=== PATIENT | male | born 1955 | race Caucasian/White ===

== ENCOUNTER 2018-05-02 06:44 | Emergency (ER) | payer OTHER ==
[~2018-05-02] VITALS: Ht 180.3 cm; Wt 93.2 kg
[~2018-05-02 06:44] MED LIST: PERCOCET PO; no home medications
[2018-05-02] MEDS ORDERED: MULTCAP PO (06:51)
[2018-05-02] MEDS ORDERED: NS 1,000 ML IV ONE ×2 (07:30→09:15)
[2018-05-02] MEDS ORDERED: ONDANSETRON 4MG/2ML VIAL (J2405) IV ONE (07:30)
[2018-05-02] MEDS ORDERED: MORPHINE 4 MG/ML 1ML VIAL/SYRINGE (J2270) IV ONE (07:30)
[2018-05-02] MEDS ORDERED: GASTROGRAFIN SOLUTION 30ML PO SCH (08:00)
[2018-05-02] MEDS: GASTROGRAFIN SOLUTION 30ML PO SCH (08:04)
[2018-05-02 08:14] LABS: BASO % 0.3 % (0.0-1.0); EOS % 0.1 % (0.0-3.0); HEMATOCRIT 50.7 % (42.0-52.0); HEMOGLOBIN 17.1 g/dl (13.5-17.5); LYMPH # 1.5 10^3/uL (1.5-4.5); LYMPH % 10.3 % (24.0-44.0); MEAN CORPUSCULAR HEMOGLOBIN 29.6 pg (27.0-33.0); MEAN CORPUSCULAR HGB CONC 33.7 g/dl (32.0-36.5); MEAN CORPUSCULAR VOLUME 87.9 fl (80.0-96.0); MONO # 0.5 10^3/uL (0.0-0.8); MONO % 3.2 % (0.0-5.0); NEUTROPHILS # 12.1 10^3/uL (1.8-7.7); NEUTROPHILS % 85.5 % (36.0-66.0); PLATELET COUNT, AUTOMATED 241 10^3/uL (150-450); RED BLOOD COUNT 5.77 10^6/uL (4.30-6.10); WHITE BLOOD COUNT 14.2 10^3/uL (4.0-10.0)
[2018-05-02 08:24] LABS: INR 0.95; PROTHROMBIN TIME 12.8 SECONDS (12.1-14.4)
[2018-05-02 08:25] LABS: PARTIAL THROMBOPLASTIN TIME 28.3 SECONDS (25.4-37.6)
[2018-05-02 08:39] LABS: ALBUMIN 3.6 GM/DL (3.2-5.2); ALT/SGPT 44 U/L (12-78); AMYLASE 52 U/L (25-115); BILIRUBIN,DIRECT 0.2 MG/DL (0.0-0.2); BILIRUBIN,TOTAL 0.7 MG/DL (0.2-1.0); BLOOD UREA NITROGEN 10 MG/DL (7-18); CALCIUM LEVEL 8.9 MG/DL (8.8-10.2); CARBON DIOXIDE LEVEL 23 MEQ/L (21-32); CHLORIDE LEVEL 105 MEQ/L (98-107); CREATININE FOR GFR 1.03 MG/DL (0.70-1.30); GLOMERULAR FILTRATION RATE > 60.0 (>49); GLUCOSE, FASTING 145 MG/DL (70-100); LIPASE 95 U/L (73-393); POTASSIUM SERUM 4.6 MEQ/L (3.5-5.1); SODIUM LEVEL 136 MEQ/L (136-145); TOTAL PROTEIN 7.8 GM/DL (6.4-8.2)
[2018-05-02] MEDS ORDERED: HYDROMORPHONE HCL 0.5 MG/ 0.5 ML SYRINGE (J1170 PER 1) IV ONE ×2 (08:45→11:00)
[2018-05-02] MEDS ORDERED: ISOVUE-370 76% 100ML VIAL (Q9967) As Ordered ONE (09:24)
--- NOTE | 2018-05-02 10:34 | REP ---
CT ABDOMEN AND PELVIS WITH CONTRAST: HISTORY: Periumbilical pain. CONTRAST: Isovue-370, 100 mL. Two small cysts measuring 6 mm and 7 mm are present in the right kidney. Calcification is present in the right kidney, consistent with nephrolithiasis. The liver, gallbladder, pancreas, spleen, adrenal glands, and left kidney are normal in appearance. There is no mass, adenopathy, or free fluid. A 10.4 cm ventral abdominal hernia containing nondilated loops of intestine is present. There is no mass, adenopathy, or free fluid. The visualized lungs are clear. The prostate gland and urinary bladder are normal in appearance. Degenerative change is present in the spine. IMPRESSION: 1. Small right renal cysts. 2. Right nephrolithiasis. 3. There is a 10.4 cm ventral abdominal hernia containing nondilated loops of intestine. Electronically Signed by True Holley MD 05/02/2018 11:21 A
[2018-05-02] MEDS ORDERED: ZOFR4TAB14 PO (12:08)
[2018-05-02 12:15] VITALS: BP 200/90
[2018-05-03] MEDS ORDERED: OCUVTAB4 PO (12:05)
[2018-05-03] MEDS ORDERED: ROCURONIUM BROMIDE 50 MG/5 ML VIAL As Ordered ONE (12:40)
[2018-05-03] MEDS ORDERED: LIDOCAINE 2% INJ 100 MG/5 ML SDV (FOR ANES.) As Ordered ONE (12:40)
[2018-05-03] MEDS ORDERED: MIDAZOLAM INJ 2 MG/2 ML VIAL (J2250) As Ordered ONE (12:40)
[2018-05-03] MEDS ORDERED: fentaNYL 250 MCG/5 ML INJECTION (J3010) As Ordered ONE (12:40)
[2018-05-03] MEDS ORDERED: PROPOFOL 200 MG/20 ML VIAL As Ordered ONE (12:40)
[2018-05-03] MEDS ORDERED: ONDANSETRON 4MG/2ML VIAL (J2405) As Ordered ONE (12:41)
[2018-05-03] MEDS ORDERED: dexameTHASONE 4 MG/ML 1ML VIAL (J1100) As Ordered ONE (12:41)
[2018-05-03] MEDS ORDERED: KETOROLAC 60 MG/2 ML VIAL (J1885) As Ordered ONE (12:41)
--- NOTE | 2018-05-03 13:36 | ECGEPIP ---
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
[2018-05-03] MEDS ORDERED: NORC1TAB4 PO (14:32)
--- NOTE | 2018-05-04 08:57 | ED PDOC ---
Post-Departure Follow-Up dr corral and mark moore faxed formal report of ct abd/p for fu Julisa Coreas MD May 04, 2018 08:57
== END 2018-05-02 12:23 | disposition home or self-care (01) ==
LOC: M ED 06:44
DX: K43.9 Ventral hernia without obstruction or gangrene (principal); N28.1 Cyst of kidney, acquired; I45.10 Unspecified right bundle-branch block; F17.210 Nicotine dependence, cigarettes, uncomplicated
CPT/HCPCS: 36415; 74177; 80048; 80076; 81001; 82150; 83605; 83690; 85025; 85610; 85730; 93005; 96361; 96374; 96375; 96376; 99284; J1170; J2270; J2405; Q9963; Q9967

== ENCOUNTER 2018-05-03 11:34 | Day surgery (SDC) | payer OTHER ==
[~2018-05-03] VITALS: Ht 180.3 cm; Wt 96.2 kg
[~2018-05-03 11:34] MED LIST changes: +MULTCAP PO; +ZOFR4TAB14 PO
[2018-05-03] MEDS ORDERED: LR 1,000 ML IV ONE (12:00)
[2018-05-03] MEDS ORDERED: OCUVTAB4 PO (12:05)
[2018-05-03] MEDS ORDERED: BUPIVACAINE/EPIN 0.25% 30 ML VIAL As Ordered ONE (12:40)
[2018-05-03] MEDS ORDERED: fentaNYL 250 MCG/5 ML INJECTION (J3010) ONE (12:41)
[2018-05-03] MEDS ORDERED: KETOROLAC 60 MG/2 ML VIAL (J1885) ONE (12:41)
[2018-05-03] MEDS ORDERED: LIDOCAINE 2% INJ 100 MG/5 ML SDV (FOR ANES.) ONE (12:41)
[2018-05-03] MEDS ORDERED: PROPOFOL 200 MG/20 ML VIAL ONE (12:41)
[2018-05-03] MEDS ORDERED: MIDAZOLAM INJ 2 MG/2 ML VIAL (J2250) ONE (12:41)
[2018-05-03] MEDS ORDERED: ROCURONIUM BROMIDE 50 MG/5 ML VIAL ONE (12:41)
[2018-05-03] MEDS ORDERED: ONDANSETRON 4MG/2ML VIAL (J2405) ONE (12:42)
[2018-05-03] MEDS ORDERED: dexameTHASONE 20 MG/5 ML VIAL (J1100) ONE (12:42)
[2018-05-03] MEDS ORDERED: ESMOLOL INJ 100MG/10ML VIAL As Ordered ONE (13:13)
[2018-05-03] MEDS ORDERED: SUGAMMADEX SODIUM 500 MG/5 ML VIAL (BRIDION) As Ordered ONE (14:11)
[2018-05-03] MEDS ORDERED: NORC1TAB4 PO (14:32)
[2018-05-03] MEDS ORDERED: ONDANSETRON 4MG/2ML VIAL (J2405) IV PRN (14:45)
[2018-05-03] MEDS ORDERED: LR 1,000 ML IV SCH (14:45)
[2018-05-03] MEDS ORDERED: fentaNYL 100 MCG/2 ML INJECTION (J3010) IV PRN (14:45)
[2018-05-03] MEDS ORDERED: PERCOCET 5MG/325MG TAB PO PRN (14:45)
[2018-05-03] MEDS ORDERED: NORCO, ANEXSIA 5/325MG TABLET (HYDROcodone/ACETAMINOPHEN) PO PRN (14:45)
--- NOTE | 2018-05-03 14:45 | RO ---
DATE OF PROCEDURE: 05/03/2018 PREOPERATIVE DIAGNOSIS: Recurrent incarcerated incisional hernia. POSTOPERATIVE DIAGNOSIS: Recurrent incarcerated incisional hernia. PROCEDURE PERFORMED: Laparoscopic repair of recurrent incarcerated incisional hernia with mesh with laparoscopic lysis of adhesions. SURGEON: Dr. Spencer Conklin. STATION SUPERVISOR: Aurelia Najera PA-C ANESTHESIA: General. ESTIMATED BLOOD LOSS: 5 COMPLICATIONS: None. INDICATIONS FOR PROCEDURE: Patient 62-year-old male who has had persistent abdominal pains recently. He has had an incarcerated ventral incisional hernia that has been causing a lot of pain as well as nausea and vomiting. Recommendation was to proceed with repair. Risks, benefits of the procedure not limited but including bleeding, infection, hernia formation, damage to surrounding structures, need for further surgery and hernia recurrence were discussed in detail with the patient and informed was obtained, procedure was planned. DESCRIPTION OF PROCEDURE: The patient brought back to operating room 7 and after sufficient sedation the abdomen was sterilely prepped and draped. Next time-out was done to confirm proper patient brought procedure. Following that a 5 mm incision made in left upper quadrant, Veress needle was inserted and the was insufflated to 2 mmHg. A 5 mm OptiView port was used to gain access to the abdomen. Once the abdomen was entered another 5 meters port was placed in left lower quadrant. There was a large ventral hernia with a loop of small bowel and omentum stuck up inside of it. The omentum was carefully taken down and at first revealing a loop of small bowel that was obstructed with a band of tissue across the previous hernia defect. I placed another 5 mm port in the right lower quadrant and was able to hold the small bowel up out of the way and cut through the band of tissue releasing the internal hernia. Once this was completed, the bowel appeared to be all viable. No signs of any injury. A 15 cm round Parietex composite mesh was then taken. All Vicryl sutures were placed in all four sides. It was placed inside the abdomen. Transvaginal sutures brought to the abdominal wall using Florentin-Marrero needle. Two rows of secure strap tacks then placed around perimeter of the mesh holding it in place. At the completion of procedure, there was no signs of any bleeding or hematomas. The mesh was nice and tight against the abdominal wall. The bowel still appeared to be viable and intact and was actively peristalsing. The abdomen desufflated. Skin incisions closed with #4-0 Vicryl subcuticular sutures. The abdomen was cleaned and dried, Steri-Strips, 4x4 and tape were applied at the end of the procedure.
[2018-05-03 17:00] VITALS: BP 183/96
== END 2018-05-03 17:26 | disposition home or self-care (01) ==
LOC: M SDC 11:34
PROVIDERS: ATTEND Surgery
DX: K43.0 Incisional hernia with obstruction, without gangrene (principal); F17.210 Nicotine dependence, cigarettes, uncomplicated
CPT/HCPCS: 49657; C1781; J0690; J1100; J1885; J2250; J2405; J3010

== ENCOUNTER 2018-11-04 09:38 | Day surgery (SDC) | payer MEDICARE, OTHER ==
[~2018-11-04] VITALS: Ht 180.3 cm; Wt 95.7 kg
[~2018-11-04 09:38] MED LIST changes: +BALANCED SALT IRRIGATION SOLUTION 500ML BAG (FOR OR EYE MACHINE) As Ordered ONE; +CEFUROXIME 1MG/0.1ML INTRACAMERAL INJ As Ordered ONE; +DUOVISC (0.50ML VISCOAT/0.55ML PROVISC) OPHTH KIT As Ordered ONE; +LIDOCAINE 0.75%/EPINEPHRINE 0.025% IN BSS 1ML SYR INTRACAMERAL (OR ONLY) As Ordered ONE; +MIDAZOLAM INJ 2 MG/2 ML VIAL (J2250) As Ordered ONE; +NORC1TAB7 PO; +OCUVTAB4 PO; +OFLOXACIN 0.3 % (OCUFLOX) OPTH SOL 5ML OD ONE; +PHENYLEPHRINE 2.5% OPHTH SOL 2ML OD ONE; +POVIDONE-IODINE 5% OPHTH PREP SOL 30ML As Ordered ONE; +PROPARACAINE 0.5% OPHTH SOL 15ML OD ONE; +TROPICAMIDE 1% OPHTH SOLN 2ML OD ONE; +fentaNYL 100 MCG/2 ML INJECTION (J3010) As Ordered ONE
[2018-11-04 12:30] VITALS: BP 161/85
--- NOTE | 2018-11-05 20:42 | RO ---
DATE OF PROCEDURE: 11/04/2018 PREOPERATIVE DIAGNOSIS: 1. Visually significant nuclear sclerotic cataract right eye. POSTOPERATIVE DIAGNOSIS: 1. Visually significant nuclear sclerotic cataract right eye. PROCEDURE: 1. Cataract extraction with use of phacoemulsification and placement of intraocular lens, [id number], 24.5 D, right eye. SURGEON: Rajeev Maldonado DO LIFE ENRICHMENT ASSISTANT: None. ANESTHESIA: Local with monitored anesthesia care (MAC). COMPLICATIONS: None. POSTOPERATIVE CONDITION: Stable. INDICATIONS FOR SURGERY: 1. Blurred vision affecting patients activities of daily living. DESCRIPTION OF PROCEDURE: The patient was seen in the preoperative area and properly identified. The correct operative eye was identified and marked. The patient received topical anesthetic, antibiotics, and topical dilating drops. The patient was then transferred to the operating room. The correct side was re-identified, and a time-out was performed. The eye was prepped and draped in a sterile fashion. The eyelids were isolated with Tegaderm tape, and the lids were held open with an adjustable speculum. A 1.0 mm paracentesis incision was made. Intraocular preservative-free Shugarcaine was then injected into the anterior chamber. Viscoelastic was then injected into the anterior chamber through the paracentesis. Using a 2.4 mm sharp-tipped keratome, the anterior chamber was entered via a temporal clear cornea incision. A continuous curvilinear capsulorrhexis was created with Utrata forceps. Hydrodissection was performed with balanced salt solution (BSS) on a blunt cannula until the nucleus was able to rotate freely. The crystalline lens was phacoemulsified and aspirated. Irrigation/aspiration was used to remove the cortical material. Cohesive viscoelastic was placed into the capsular bag to deepen it. The implant was placed into the capsular bag and allowed to unfold. Placement was confirmed by visualizing the anterior capsulorrhexis. Irrigation/aspiration was used to remove the viscoelastic. The clear corneal incision was hydrated with BSS on a blunt cannula. The lens was well positioned. The incisions were then tested for leaks and found to be negative. The eye was then palpated for appropriate pressure and adjusted accordingly with BSS. The eyelid speculum was then carefully removed. A shield was placed over the eye. The patient tolerated the procedure well and was discharged to the recovery unit in a stable condition.
== END 2018-11-04 12:33 | disposition home or self-care (01) ==
LOC: M SDC 09:38
PROVIDERS: ATTEND Ophthalmology
DX: H25.12 Age-related nuclear cataract, left eye (principal); H35.30 Unspecified macular degeneration; Z72.0 Tobacco use
CPT/HCPCS: 66984; J2250; J3010; V2632

== ENCOUNTER 2019-05-19 18:36 | Observation (INO) | payer MEDICARE, OTHER ==
[~2019-05-19] VITALS: Ht 177.8 cm; Wt 98.0 kg
[~2019-05-19 18:36] MED LIST changes: -BALANCED SALT IRRIGATION SOLUTION 500ML BAG (FOR OR EYE MACHINE) As Ordered ONE; -CEFUROXIME 1MG/0.1ML INTRACAMERAL INJ As Ordered ONE; -DUOVISC (0.50ML VISCOAT/0.55ML PROVISC) OPHTH KIT As Ordered ONE; -LIDOCAINE 0.75%/EPINEPHRINE 0.025% IN BSS 1ML SYR INTRACAMERAL (OR ONLY) As Ordered ONE; -MIDAZOLAM INJ 2 MG/2 ML VIAL (J2250) As Ordered ONE; -OFLOXACIN 0.3 % (OCUFLOX) OPTH SOL 5ML OD ONE; -PHENYLEPHRINE 2.5% OPHTH SOL 2ML OD ONE; -POVIDONE-IODINE 5% OPHTH PREP SOL 30ML As Ordered ONE; -PROPARACAINE 0.5% OPHTH SOL 15ML OD ONE; -TROPICAMIDE 1% OPHTH SOLN 2ML OD ONE; -fentaNYL 100 MCG/2 ML INJECTION (J3010) As Ordered ONE
[2019-05-19] MEDS ORDERED: ACETAMINOPHEN TAB 650MG DOSE (2X325MG) PO ONE (19:00)
[2019-05-19 19:24] LABS: BASO % 0.4 % (0.0-1.0); EOS % 0.2 % (0.0-3.0); HEMOGLOBIN 16.4 g/dl (13.5-17.5); LYMPH # 0.7 10^3/uL (1.5-5.0); LYMPH % 13.8 % (24.0-44.0); MEAN CORPUSCULAR HEMOGLOBIN 29.2 pg (27.0-33.0); MEAN CORPUSCULAR HGB CONC 32.8 g/dl (32.0-36.5); MEAN CORPUSCULAR VOLUME 89.1 fl (80.0-96.0); MONO # 0.5 10^3/uL (0.0-0.8); MONO % 9.9 % (0.0-5.0); NEUTROPHILS % 75.5 % (36.0-66.0); PLATELET COUNT, AUTOMATED 146 10^3/uL (150-450); RED BLOOD COUNT 5.61 10^6/uL (4.30-6.10); WHITE BLOOD COUNT 5.4 10^3/uL (4.0-10.0)
[2019-05-19] MEDS ORDERED: NS 1,000 ML IV ONE (19:30)
[2019-05-19] MEDS ORDERED: IPRATROPIUM 0.5MG/ALBUTEROL 2.5MG INH SOL UD 3ML (DUONEB)(J7620) NEB ONE (19:45)
[2019-05-19 19:51] LABS: BLOOD UREA NITROGEN 17 MG/DL (7-18); CARBON DIOXIDE LEVEL 25 MEQ/L (21-32); CHLORIDE LEVEL 106 MEQ/L (98-107); GLOMERULAR FILTRATION RATE > 60.0 (>49); GLUCOSE, FASTING 128 MG/DL (70-100); POTASSIUM SERUM 4.2 MEQ/L (3.5-5.1); SODIUM LEVEL 139 MEQ/L (136-145)
--- NOTE | 2019-05-19 19:51 | REP ---
Chest x-ray: Two views. History: Dyspnea and cough. Comparison study: November 14, 2013. Findings: Oxygen delivery tubing and EKG monitoring electrodes overlie the chest. The lungs are somewhat hyperinflated but clear. Pleural angles are sharp. Heart size is normal. There are mild degenerative changes in the thoracic spine. Impression: Mild hyperinflation. Otherwise no acute disease. Electronically Signed by Yaakov Rosales MD 05/19/2019 07:43 P
[2019-05-19 19:59] LABS: INFLUENZA A AMPLIFICATION POSITIVE (NEGATIVE); INFLUENZA B AMPLIFICATION NEGATIVE (NEGATIVE)
[2019-05-19] MEDS ORDERED: OSELTAMIVIR PHOSPHATE 75 MG CAP (TAMIFLU) PO ONE (20:45)
[2019-05-19] MEDS ORDERED: ACETAMINOPHEN TAB 650MG DOSE (2X325MG) PO PRN (21:15)
[2019-05-19] MEDS ORDERED: IBUP-1764 PO (21:24)
[2019-05-19] MEDS ORDERED: PRES10CA2 PO (21:24)
[2019-05-19] MEDS ORDERED: VITMTA PO (21:24)
[2019-05-19] MEDS ORDERED: LEVALBUTEROL 1.25 MG/0.5 ML CONCENTRATE NEB NEB PRN (21:45)
--- NOTE | 2019-05-19 22:35 | HPEPDOC ---
General Date of Admission May 19, 2019 at 18:37 Date of Service: May 19, 2019 Attending Physician: YESENIA SANCHEZ MD Chief Complaint The patient is a 63-year-old male admitted with a reason for visit of Hypoxia, Influenza A. Source: Patient, Family Exam Limitations: No limitations Timing/Duration: Day(s) Severity: Severe Associated Symptoms: Fever, Chills, Shortness of breath History of Present Illness 63 yo man without any contact with healthcare providers in many years reporting good general health who presents with 3 days of congestion, rhinorrhea, dry cough, fever and an episode of feeling faint while taking a shower with profound shortness of breath that precipitated him to present to the ED. In the ED, he was found to be hypertensive to 161/91, hypoxemic to 80s on room air and placed on 3L nasal canula, tachycardic to 124 with an initial respiratory rate of 31 and a fever to 103.4. Initial work up revealed flu A infection, with otherwise WBC 5.4, hgb 16.4, hct 50, platelets 146, na 139, K 4.2, Cr 0.9, lactate 1.5, CXR with hyperinflation but no opacities or congestion and VBG showed 7.44/31.4/92. While in the ED, he was given 1L NS, tylenol 650mg and he defervesced, tamiflu and duoneb x 1. By the time I assessed him, he felt "light years" better and was speaking in full sentences. he is now being admitted to medicine for supportive treatment for flu A. Home Medications Scheduled Multivitamins (Thera M Plus Tablet) 1 Each Tablet, 1 TAB PO QPM, (Reported) AFTER DINNER Vit C/E/Zn/Coppr/Lutein/Zeaxan (Preservision Areds 2 Softgel) 1 Each Capsule, 2 CAP PO QPM, (Reported) AFTER DINNER Scheduled PRN Ibuprofen (Ibuprofen) 200 Mg Tablet, 200 MG PO Q6H PRN for PAIN, (Reported) Allergies Coded Allergies: No Known Allergies (Unverified , 10/25/18) Past Medical History Medical History Smoker with hyperinflation on CXR Has not seen a physician in over 10 years Surgical History Tonsillectomy Abdominal hernia repair Bilateral cataract surgery Family History Significant Family History: No pertinent family hx Social History * Smoker: current smoker Alcohol: occationally Drugs: denies Recent Travel/Sick Contacts: Denies: Recent travel, Recent sick contacts Psychosocial History: No pertinent psych hx , lives with his and dog in [place], [place]. A-FIB/CHADSVASC A-FIB History Current/History of A-Fib/PAF?: No Current PO Anticoag Therapy: No Age/Risk Factor Scoring CHADSVASC: CHADSVASC Response (Comments) Value Age Risk Factor Age 65-74 years old 1 Gender Risk Factor Male 0 Hx of CHF No 0 Hx of HTN No 0 Hx of Stroke/TIA/or VTE No 0 Hx of Diabetes No 0 Hx of Vascular Disease No 0 Total 1 Treatment Treatment ordered: NONE Reason Anticoagulant not given: Not indicated/[id number] Review of Systems Constitutional: Reports: Chills, Fever, Malaise; Denies: Weight Loss Eyes: Denies: Pain, Vision change ENT: Reports: Sinus Congestion, Post Nasal Drip; Denies: Head Aches, Ear Pain, Dysphagia Skin: Denies: Rash, Lesions, Breakdown Pulmonary: Reports: Dyspnea, Cough; Denies: Pleuritic Chest Pain Cardiovascular: Denies: Chest Pain, Palpitations, Orthopnea, Paroxysmal Noc. Dyspnea, Edema, Lt Headedness Gastrointestinal: Denies: Nausea, Vomiting, Abdominal Pain, Diarrhea Genitourinary: Denies: Dysuria, Frequency, Incontinence, Retention Hematologic: Denies: Bruising, Bleeding Excessively Endocrine: Denies: Polydipsia, Polyphagia, Polyuria, Heat Intolerance, Cold Intolerance, Other Endocrine Sx Musculoskeletal: Denies: Neck Pain, Back Pain, Joint Pain, Muscle Pain, Spasms Neurological: Denies: Weakness, Numbness, Change in speech, Confusion Psych: Reports: Mood Normal; Denies: Depression, Memory Issues Physical Examination General Exam: Positive: Alert, No Acute Distress, Other (obese) Eye Exam: Positive: PERRLA, Conjunctiva & lids normal, EOMI; Negative: Sclera icteric ENT Exam: Positive: Atraumatic, Mucous membr. moist/pink, Pharynx Normal, Tongue Midline, Nares Patent; Negative: Pharyngeal Edema Neck Exam: Positive: Supple; Negative: JVD, thyromegaly Chest Exam: Positive: Rhonchi, Wheezing, Other (sounds tight and has end expiratory wheezing); Negative: Rales Heart Exam: Positive: Rate Normal, Regular Rhythm, Normal S1, Normal S2; Negative: Murmurs, Rubs Telemetry: Positive: Tachycardia Abdomen Exam: Positive: Normal bowel sounds, Soft; Negative: Tenderness, Hepatospenomegaly Extremity Exam: Positive: Normal pulses; Negative: Clubbing, Cyanosis, Edema Skin Exam: Positive: Nl turgor and temperature; Negative: Breakdown, Lesion Neuro Exam: Positive: Normal Gait, Normal Speech, Cranial Nerves 3-12 NL, Reflexes 2+ Psych Exam: Positive: Mental status NL, Mood NL, Oriented x 3 Vital Signs Vital Signs Date Time Temp Pulse Resp B/P (MAP) Pulse Ox O2 Delivery O2 Flow Rate FiO2 05/19/19 21:15 102 16 147/65 (92) 93 Nasal Cannula 3.0 05/19/19 21:08 100.8 Laboratory Data Labs 24H Laboratory Tests 2 05/19/19 19:09: Immature Granulocyte % (Auto) 0.2, Neutrophils (%) (Auto) 75.5H, Lymphocytes (%) (Auto) 13.8L, Monocytes (%) (Auto) 9.9H, Eosinophils (%) (Auto) 0.2, Basophils (%) (Auto) 0.4, Neutrophils # (Auto) 4.0, Lymphocytes # (Auto) 0.7L, Monocytes # (Auto) 0.5, Eosinophils # (Auto) 0.0, Basophils # (Auto) 0.0, Nucleated Red Blood Cells % (auto) 0.0, Anion Gap 8, Glomerular Filtration Rate > 60.0, Lactic Acid Level 1.5, Calcium Level 8.0L, Influenza Type A (RT-PCR) POSITIVEH, Influenza Type B (RT-PCR) NEGATIVE 05/19/19 20:06: POC pH (Misc Panel) 7.444, POC Base Excess (Misc Panel) -3.0L, POC Saturated Percent O2 (Misc) 92L, POC pO2 (Misc Panel) 59.0L, POC pCO2 (Misc Panel) 31.4L, POC HCO3 (Misc Panel) 21.5L, POC Total CO2 (Misc Panel) 22.0L CBC/BMP Laboratory Tests 05/19/19 19:09 Microbiology Microbiology 05/19/19 Blood Culture, Received Pending 05/19/19 Blood Culture, Received Pending Assessment/Plan 63 yo man without any contact with healthcare providers in many years reporting good general health who presents with 3 days of congestion, rhinorrhea, dry cough, fever and SOB and found to have flu A. Plan: Flu A: c/b hypoxemic respiratory failure -tamiflu started in the ED, will give for 5d given that he required admission -Hypoxemia 2/2 flu with bronchospasm and wheezing on exam --> ipratropium/xopenex nebs Q6H scheduled, xonepex Q4H PRN for wheezing -s/p 1L NS -CXR without focal opacities, no leukocytosis, will not give antibiotics -No steroids at this time, already much better after 1 duoneb and supplemental O2, will monitor Obesity, hypertension, smoking: -discussed that he needs a PCP and appropriate healthcare follow ups for the ab ove mentioned issues as well as appropriate cancer screening. Agreed to getting set up with a PCP at this time. -Has not smoked in two weeks, is contemplating quitting DVT ppx: Lovenox Dispo: Medsurg, obs, with discharge dependent on clinical course Plan / VTE VTE Prophylaxis Ordered?: Yes YESENIA SANCHEZ MD May 19, 2019 22:35
[2019-05-19 22:45] VITALS: BP 153/78
[2019-05-20] MEDS: LEVALBUTEROL 1.25 MG/0.5 ML CONCENTRATE NEB NEB SCH ×2 (02:32→07:13)
[2019-05-20] MEDS: IPRATROPIUM 0.02% SOLN 0.5MG/2.5 ML NEB NEB SCH ×2 (02:32→07:13)
[2019-05-20 06:00] VITALS: BP 161/88
[2019-05-20] MEDS ORDERED: OSEL75CA2 PO (07:15)
[2019-05-20] MEDS ORDERED: ALBU83IN INH (07:15)
[2019-05-20 07:23] LABS: HEMATOCRIT 46.4 % (42.0-52.0); HEMOGLOBIN 15.3 g/dl (13.5-17.5); MEAN CORPUSCULAR HEMOGLOBIN 29.7 pg (27.0-33.0); MEAN CORPUSCULAR VOLUME 89.9 fl (80.0-96.0); PLATELET COUNT, AUTOMATED 155 10^3/uL (150-450); RED BLOOD COUNT 5.16 10^6/uL (4.30-6.10); WHITE BLOOD COUNT 8.9 10^3/uL (4.0-10.0)
[2019-05-20 07:47] LABS: BLOOD UREA NITROGEN 15 MG/DL (7-18); CALCIUM LEVEL 8.2 MG/DL (8.8-10.2); CARBON DIOXIDE LEVEL 25 MEQ/L (21-32); CHLORIDE LEVEL 109 MEQ/L (98-107); CREATININE FOR GFR 0.89 MG/DL (0.70-1.30); GLOMERULAR FILTRATION RATE > 60.0 (>49); GLUCOSE, FASTING 154 MG/DL (70-100); POTASSIUM SERUM 4.5 MEQ/L (3.5-5.1); SODIUM LEVEL 139 MEQ/L (136-145)
[2019-05-20] MEDS ORDERED: ISOVUE-370 76% 100ML VIAL (Q9967) As Ordered ONE (07:54)
[2019-05-20 08:00] VITALS: BP 169/81
[2019-05-20] MEDS ORDERED: PROV108A INH (08:07)
--- NOTE | 2019-05-20 08:55 | IPN ---
DATE: 05/19/2019 Maximum temperature (t-max) overnight was 103.2 at 1849 hours last evening. Current temperature is 97.8. The patient states that he feels better, breathing better this morning. No nausea, vomiting, chest pain, pressure or tightness. He has a cough productive of white sputum. Able to sleep last night. No headaches or changes in vision, diarrhea, nausea, vomiting, epigastric pain, dysuria, urgency, frequency. Denies any generalized weakness, paresthesias, anxiety, depression. Tolerating his diet well. No other issues per nursing overnight. PHYSICAL EXAMINATION: VITAL SIGNS: Temperature 97.8, pulse 105, respiratory rate 20, blood pressure 169/81, 95% on 3 liters nasal cannula. GENERAL: The patient is awake, alert and oriented times three. Answering questions appropriately. No respiratory distress or use of respiratory accessory muscles. Able to speak in full sentences without use of respiratory accessory muscles. No conversational dyspnea. No stridor or tracheal deviation. Moist mucous membranes. No jugular venous distention (JVD), thyromegaly, or cervical lymphadenopathy. LUNGS: Air entry is equal bilaterally. Faint expiratory wheezing. HEART: S1, S2. Sinus rhythm. ABDOMEN: Obese, soft, nontender, nondistended. EXTREMITIES: No cyanosis or clubbing. LABORATORY DATA: White count 8.9, hemoglobin 15, hematocrit 46, platelet count 155. Sodium 159, potassium 4.5, chloride 109, bicarbonate 25, BUN 15, creatinine 0.89, glucose of 154. Respiratory panel is pending. Two sets of blood cultures pending. Influenza A and B serology positive for influenza A. Chest x-ray on 05/19/2019 showed mild hyperinflation. No acute disease. ASSESSMENT AND PLAN: This is a 63-year-old man who presented to the emergency room with fever of 103.4, upper respiratory infection with congestion, rhinorrhea, and dry cough, felt faint in the shower and short of breath. The patient was admitted for influenza A with symptomatic improvement after treatment. 1. Influenza A. Currently on Tamiflu. 2. Acute hypoxic respiratory failure with saturation in the 80s on room air in the emergency room yesterday. We will check pulse oximetry with ambulation on room air. Keep oxygen saturation greater than 90%. 3. Obesity. Outpatient weight loss. 4. Hypertension. Start on Norvasc 5 mg daily. 5. Deep vein thrombosis (DVT) prophylaxis. Encourage ambulation. Compression stockings. 6. Active smoking. Tobacco cessation counseling. DISPOSITION: Awaiting physical therapy (PT) evaluation. May need 1 to 2 more days due to acute hypoxia for supportive care. Continue with nebulizers. MTDD
[2019-05-20] MEDS ORDERED: amLODIPine 5 MG TAB PO SCH (09:00)
[2019-05-20] MEDS ORDERED: OSELTAMIVIR PHOSPHATE 75 MG CAP (TAMIFLU) PO SCH (09:00)
[2019-05-20] MEDS ORDERED: ENOXAPARIN 40 MG/0.4 ML SYRINGE (J1650) SC SCH (09:00)
--- NOTE | 2019-05-20 09:20 | REP ---
CT of the chest with IV contrast, CT pulmonary angiography: There are no comparison chest CTs. There are no emboli in the pulmonary trunk or central pulmonary arteries. There are no emboli in the pulmonary lobe or segment branches. There is dependent atelectasis in the lung browne. There are borderline enlarged subcarinal mediastinal nodes measuring up to 12 mm short axis. There are anterior mediastinal nodes mostly normal size, however there is an enlarged anterior mediastinal node measuring 10 mm short axis. There is no hilar adenopathy. There is no axillary adenopathy. The thoracic aorta is unremarkable. Cardiac size is normal. The visualized upper abdominal contents are unremarkable. Impression There are no pulmonary emboli. There is dependent atelectasis in the lung browne bilaterally. There are mediastinal lymph nodes as described. Electronically Signed by Spencer Jasso MD 05/20/2019 09:12 A
[2019-05-20] MEDS ORDERED: NICOTINE POLACRILEX 2 MG GUM PO PRN (10:00)
[2019-05-20] MEDS ORDERED: amLODIPine 5 MG TAB PO ONE (11:00)
[2019-05-20 11:22] VITALS: BP 167/81
--- NOTE | 2019-05-20 20:22 | ECGEPIP ---
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
== END 2019-05-20 11:40 | disposition home or self-care (01) ==
LOC: M ED 18:36 → EDBD 18:36 → M ED INP 18:37 → ENRESERVTM 21:57 → ENRESERVDT 21:57 → M PED 22:44
PROVIDERS: ADMIT Internal Medicine; ATTEND Internal Medicine
DX: R09.02 Hypoxemia (principal); J10.1 Influenza due to other identified influenza virus with other respiratory manifestations; I10 Essential (primary) hypertension; E66.9 Obesity, unspecified; F17.218 Nicotine dependence, cigarettes, with other nicotine-induced disorders
CPT/HCPCS: 36415; 36600; 71046; 71275; 80048; 82803; 83605; 85025; 85027; 87040; 87486; 87502; 87581; 87633; 87641; 87798; 93005; 93041; 94640; 96360; 96372; 97161; 99285; G0378; J1650; Q9967

== ENCOUNTER → 2019-05-25 | Outpatient (CLI) | payer MEDICARE, OTHER ==
[~2019-05-25] MED LIST changes: +ALBU83IN INH; +IBUP-1764 PO; +OSEL75CA2 PO; +PRES10CA2 PO; +PROV108A INH; +VITMTA PO
--- NOTE | 2019-05-26 07:27 | REP ---
PA and lateral chest: Comparison is 05/19/2019. There is a right upper lobe infiltrate as a change from the comparison study. Lung browne otherwise clear. Cardiac size is normal. The tim, mediastinum, skeletal structures are unremarkable. There are no pleural effusions. Impression: New right upper lobe infiltrate as an interval change. Electronically Signed by Spencer Jasso MD 05/25/2019 10:15 A
== END ==
LOC: M ADAMS 09:56
PROVIDERS: ATTEND Family Medicine
DX: R91.8 Other nonspecific abnormal finding of lung field (principal); J10.1 Influenza due to other identified influenza virus with other respiratory manifestations
CPT/HCPCS: 71046; G0463

== ENCOUNTER → 2019-07-04 | Outpatient (REF) | payer MEDICARE, OTHER ==
[2019-07-04 12:54] LABS: BLOOD UREA NITROGEN 11 MG/DL (7-18); CALCIUM LEVEL 9.2 MG/DL (8.8-10.2); CARBON DIOXIDE LEVEL 26 MEQ/L (21-32); CHLORIDE LEVEL 106 MEQ/L (98-107); CHOLESTEROL LEVEL 213 MG/DL (<200); CHOLESTEROL RISK RATIO 5.195 (<5); CREATININE FOR GFR 0.94 MG/DL (0.70-1.30); GLOMERULAR FILTRATION RATE > 60.0 (>49); GLUCOSE, FASTING 94 MG/DL (70-100); HDL CHOLESTEROL 41 MG/DL (>40); LDL CHOLESTEROL 112 MG/DL (<100); NON-HDL-C 172 MG/DL; POTASSIUM SERUM 4.8 MEQ/L (3.5-5.1); SODIUM LEVEL 140 MEQ/L (136-145); TRIGLYCERIDES LEVEL 301 MG/DL (<150)
== END ==
LOC: M SFHCADAM 08:13
PROVIDERS: ATTEND Family Medicine
DX: E66.9 Obesity, unspecified (principal); Z12.11 Encounter for screening for malignant neoplasm of colon; F17.211 Nicotine dependence, cigarettes, in remission

== ENCOUNTER → 2019-07-08 | Outpatient (CLI) | payer MEDICARE, OTHER ==
[~2019-07-08] MED LIST changes: +ISOVUE-370 76% 100ML VIAL (Q9967) As Ordered ONE
--- NOTE | 2019-07-08 16:17 | REP ---
CT of the chest with IV contrast: Comparison is a chest CT of 05/20/2019. On the prior study there was mediastinal lymph node enlargement. On the prior study there were enlarged anterior mediastinal nodes measuring up to 10 mm short axis. These nodes have decreased in size. The larger node now measures up to 7 mm short axis, borderline enlarged. On the prior study there were enlarged subcarinal nodes measuring up to 12 mm short axis. These nodes are unchanged and again measure 12 mm short axis. On the study today there is a right hilar nodes seen to better advantage on the study today than previously measuring 7 mm short axis, borderline enlarged. This measured 7 mm previously. There are no lung infiltrates or pleural effusions. There are no lung masses or nodules. This is unchanged. The thoracic aorta is unremarkable. Cardiac size is normal. No pericardial effusion. The visualized upper abdominal contents are unremarkable and unchanged. Impression: The anterior mediastinal nodes have decreased in size. The subcarinal nodes and right hilar node are unchanged in size. The dependent atelectasis identified previously is no longer present. Electronically Signed by Spencer Jasso MD 07/08/2019 04:09 P
== END ==
LOC: M RAD 12:56
PROVIDERS: ATTEND Family Medicine
DX: R91.8 Other nonspecific abnormal finding of lung field (principal); R59.0 Localized enlarged lymph nodes
CPT/HCPCS: 71260; Q9967

== ENCOUNTER → 2019-09-18 | Outpatient (CLI) | payer MEDICARE, OTHER ==
[~2019-09-18] MED LIST changes: +ATOR40TA75 PO; -ISOVUE-370 76% 100ML VIAL (Q9967) As Ordered ONE
== END ==
LOC: M LABSMTC 09:31
PROVIDERS: ATTEND Anesthesiology
DX: Z01.812 Encounter for preprocedural laboratory examination (principal); Z11.59 Encounter for screening for other viral diseases

== ENCOUNTER 2019-09-21 06:42 | Day surgery (SDC) | payer MEDICARE, OTHER ==
[~2019-09-21] VITALS: Ht 180.3 cm; Wt 100.7 kg
[2019-09-21] MEDS ORDERED: NS 1,000 ML IV ONE (07:15)
[2019-09-21] MEDS ORDERED: LIDOCAINE 2% 100MG/5ML SDV (FOR ANES.) As Ordered ONE (07:41)
[2019-09-21] MEDS ORDERED: propofoL 200 MG/20 ML VIAL As Ordered ONE ×2 (07:41→10:03)
--- NOTE | 2019-09-21 08:01 | ROOR ---
Patient Name: Donte Mora Procedure Date: 09/21/2019 7:29 AM Date of : 1955 Age: 64 Room: [facility] Gender: Male Note Status: Finalized Procedure: Colonoscopy Indications: Screening for colorectal malignant neoplasm Providers: Spencer Conklin DO Referring MD: Deidre CONNER DO Requesting Provider: Medicines: Propofol per Anesthesia Complications: No immediate complications. Procedure: Pre-Anesthesia Assessment: - Prior to the procedure, a History and Physical was performed, and patient medications and allergies were reviewed. The patient is competent. The risks and benefits of the procedure and the sedation options and risks were discussed with the patient. All questions were answered and informed consent was obtained. Patient identification and proposed procedure were verified by the physician, the nurse, the anesthesiologist and the fuel technician in the endoscopy suite. Mental Status Examination: normal. Airway Examination: normal oropharyngeal airway and neck mobility. Respiratory Examination: clear to auscultation. CV Examination: normal. Prophylactic Antibiotics: The patient does not require prophylactic antibiotics. Prior Anticoagulants: The patient has taken no previous anticoagulant or antiplatelet agents. ASA Grade Assessment: II - A patient with mild systemic disease. After reviewing the risks and benefits, the patient was deemed in satisfactory condition to undergo the procedure. The anesthesia plan was to use monitored anesthesia care (MAC). Immediately prior to administration of medications, the patient was re-assessed for adequacy to receive sedatives. The heart rate, respiratory rate, oxygen saturations, blood pressure, adequacy of pulmonary ventilation, and response to care were monitored throughout the procedure. The physical status of the patient was re-assessed after the procedure. The Colonoscope was introduced through the anus and advanced to the cecum, identified by appendiceal orifice and ileocecal valve. The colonoscopy was performed without difficulty. The patient tolerated the procedure well. Findings: A less than 5 mm polyp was found in the descending colon. The polyp was hyperplastic. The polyp was removed with a jumbo cold forceps. Resection and retrieval were complete. Estimated blood loss was minimal. A less than 5 mm polyp was found in the rectum. The polyp was pedunculated. The polyp was removed with a hot snare. Resection and retrieval were complete. Estimated blood loss was minimal. Internal hemorrhoids were found during retroflexion. The hemorrhoids were small and Grade I (internal hemorrhoids that do not prolapse). The exam was otherwise without abnormality on direct and retroflexion views. Impression: - One less than 5 mm polyp in the descending colon, removed with a jumbo cold forceps. Resected and retrieved. - One less than 5 mm polyp in the rectum, removed with a hot snare. Resected and retrieved. - Internal hemorrhoids. - The examination was otherwise normal on direct and retroflexion views. Recommendation: - Patient has a contact number available for emergencies. The signs and symptoms of potential delayed complications were discussed with the patient. Return to normal activities tomorrow. Written discharge instructions were provided to the patient. - Await pathology results. - Repeat colonoscopy in 3 - 5 years for surveillance based on pathology results. - Return to my office at appointment to be scheduled. Spencer Conklin DO 09/21/2019 8:01:03 AM Electronically signed by Spencer Conklin DO Number of Addenda: 0 Note Initiated On: 09/21/2019 7:29 AM Estimated Blood Loss: Estimated blood loss was minimal.
[2019-09-21 08:20] VITALS: BP 139/80
== END 2019-09-21 08:30 | disposition home or self-care (01) ==
LOC: M OPP 06:42
PROVIDERS: ATTEND Surgery
DX: Z12.11 Encounter for screening for malignant neoplasm of colon (principal); D12.4 Benign neoplasm of descending colon; K62.1 Rectal polyp; K64.0 First degree hemorrhoids; Z79.899 Other long term (current) drug therapy; Z87.891 Personal history of nicotine dependence

== ENCOUNTER → 2019-10-31 | Outpatient (REF) | payer MEDICARE, OTHER ==
[2019-10-31 17:58] LABS: BLOOD UREA NITROGEN 11 MG/DL (7-18); CALCIUM LEVEL 8.9 MG/DL (8.8-10.2); CARBON DIOXIDE LEVEL 28 MEQ/L (21-32); CHLORIDE LEVEL 109 MEQ/L (98-107); CREATININE FOR GFR 0.91 MG/DL (0.70-1.30); GLOMERULAR FILTRATION RATE > 60.0 (>49); GLUCOSE, FASTING 116 MG/DL (70-100); POTASSIUM SERUM 4.3 MEQ/L (3.5-5.1); SODIUM LEVEL 140 MEQ/L (136-145)
== END ==
LOC: M SFHCADAM 13:44
PROVIDERS: ATTEND Family Medicine
DX: R91.8 Other nonspecific abnormal finding of lung field (principal)

== ENCOUNTER → 2019-11-03 | Outpatient (CLI) | payer MEDICARE, OTHER ==
[~2019-11-03] MED LIST changes: +ISOVUE-370 76% 100ML VIAL As Ordered ONE
--- NOTE | 2019-11-04 00:44 | REP ---
REASON: Followup hilar adenopathy. CONTRAST: 100 mL Isovue-370. All priors were reviewed, the latest of which is dated 07/08/2019. That exam showed subcarinal and right hilar adenopathy. There are multiple nonenlarged mediastinal and hilar lymph nodes. There is no adenopathy. There are no pleural or pericardial effusions. The imaged upper abdomen and imaged osseous structures are unchanged and are within normal limits. Evaluation of the lung [place] shows stable appearing chronic emphysematous changes and cylindrical bronchiectasis. No new abnormal nodules, masses, or opacities have developed. IMPRESSION: 1. There is no evidence of adenopathy on today's exam; however, there are borderline mediastinal lymph nodes. 2. Chronic stable appearing lung changes, as described above. Consider followup. Electronically Signed by Jared Bennett DO 11/04/2019 08:56 A
== END ==
LOC: M RAD 13:38
PROVIDERS: ATTEND Family Medicine
DX: R59.0 Localized enlarged lymph nodes (principal)
CPT/HCPCS: 71260; Q9967

== ENCOUNTER → 2020-06-11 | Outpatient (REF) | payer MEDICARE, OTHER ==
[~2020-06-11] MED LIST changes: -ISOVUE-370 76% 100ML VIAL As Ordered ONE
[2020-06-11 13:40] LABS: BASO # 0.1 10^3/uL (0.0-0.2); BASO % 0.9 % (0.0-1.0); EOS # 0.2 10^3/uL (0.0-0.5); EOS % 2.2 % (0.0-3.0); HEMATOCRIT 50.9 % (42.0-52.0); HEMOGLOBIN 16.4 g/dl (13.5-17.5); LYMPH # 2.3 10^3/uL (1.5-5.0); LYMPH % 24.1 % (24.0-44.0); MEAN CORPUSCULAR HEMOGLOBIN 29.1 pg (27.0-33.0); MEAN CORPUSCULAR HGB CONC 32.2 g/dl (32.0-36.5); MEAN CORPUSCULAR VOLUME 90.4 fl (80.0-96.0); MONO # 0.8 10^3/uL (0.0-0.8); MONO % 8.4 % (0.0-8.0); NEUTROPHILS # 6.2 10^3/uL (1.5-8.5); NEUTROPHILS % 63.6 % (36.0-66.0); PLATELET COUNT, AUTOMATED 240 10^3/uL (150-450); RED BLOOD COUNT 5.63 10^6/uL (4.30-6.10); WHITE BLOOD COUNT 9.7 10^3/uL (4.0-10.0)
[2020-06-11 14:02] LABS: ALBUMIN 3.8 GM/DL (3.2-5.2); ALT/SGPT 29 U/L (12-78); BILIRUBIN,TOTAL 0.9 MG/DL (0.2-1.0); BLOOD UREA NITROGEN 11 MG/DL (7-18); CALCIUM LEVEL 9.3 MG/DL (8.8-10.2); CARBON DIOXIDE LEVEL 28 MEQ/L (21-32); CHLORIDE LEVEL 106 MEQ/L (98-107); CHOLESTEROL LEVEL 148 MG/DL (<200); CHOLESTEROL RISK RATIO 3.441 (<5); GLOMERULAR FILTRATION RATE > 60.0 (>49); GLUCOSE, FASTING 88 MG/DL (70-100); HDL CHOLESTEROL 43 MG/DL (>40); LDL CHOLESTEROL 45 MG/DL (<100); NON-HDL-C 105 MG/DL; SODIUM LEVEL 140 MEQ/L (136-145); TOTAL PROTEIN 7.6 GM/DL (6.4-8.2); TRIGLYCERIDES LEVEL 302 MG/DL (<150)
== END ==
LOC: M SFHCADAM 10:12
PROVIDERS: ATTEND Family Medicine
DX: R03.0 Elevated blood-pressure reading, without diagnosis of hypertension (principal); Z79.899 Other long term (current) drug therapy

== ENCOUNTER → 2020-12-07 | Outpatient (CLI) | payer MEDICARE, OTHER ==
[~2020-12-07] MED LIST changes: +LISI10TA22; +PRESCAP PO
== END ==
LOC: M LABSMTC 11:34
PROVIDERS: ATTEND Surgery
DX: Z01.812 Encounter for preprocedural laboratory examination (principal); Z20.822 Contact with and (suspected) exposure to COVID-19

== ENCOUNTER 2020-12-12 08:47 | Day surgery (SDC) | payer MEDICARE, OTHER ==
[~2020-12-12] VITALS: Ht 177.8 cm; Wt 102.4 kg
[~2020-12-12 08:47] MED LIST changes: +NS 1,000 ML IV ONE
[2020-12-12] MEDS ORDERED: LIDOCAINE 2% 100MG/5ML SDV (FOR ANES.) As Ordered ONE (10:33)
[2020-12-12] MEDS ORDERED: propofoL 200 MG/20 ML VIAL As Ordered ONE (10:33)
--- NOTE | 2020-12-12 10:42 | ROOR ---
Patient Name: Donte Mora Procedure Date: 12/12/2020 10:23 AM Date of : 1955 Age: 65 Room: [facility] Gender: Male Note Status: Finalized Procedure: Colonoscopy Indications: High risk colon cancer surveillance: Personal history of colonic polyps Providers: Spencer Conklin DO Referring MD: Deidre Jacob DO Requesting Provider: Medicines: Propofol per Anesthesia Complications: No immediate complications. Procedure: Pre-Anesthesia Assessment: - Prior to the procedure, a History and Physical was performed, and patient medications and allergies were reviewed. The patient is competent. The risks and benefits of the procedure and the sedation options and risks were discussed with the patient. All questions were answered and informed consent was obtained. Patient identification and proposed procedure were verified by the physician, the nurse, the anesthesiologist and the die cast technician in the endoscopy suite. Mental Status Examination: alert and oriented. Airway Examination: normal oropharyngeal airway and neck mobility. Respiratory Examination: clear to auscultation. CV Examination: normal. ASA Grade Assessment: II - A patient with mild systemic disease. After reviewing the risks and benefits, the patient was deemed in satisfactory condition to undergo the procedure. The anesthesia plan was to use monitored anesthesia care (MAC). Immediately prior to administration of medications, the patient was re-assessed for adequacy to receive sedatives. The heart rate, respiratory rate, oxygen saturations, blood pressure, adequacy of pulmonary ventilation, and response to care were monitored throughout the procedure. The physical status of the patient was re-assessed after the procedure. The Colonoscope was introduced through the anus and advanced to the cecum, identified by appendiceal orifice and ileocecal valve. The colonoscopy was performed without difficulty. The patient tolerated the procedure well. Findings: Non-bleeding internal hemorrhoids were found during retroflexion. The hemorrhoids were mild and Grade I (internal hemorrhoids that do not prolapse). Impression: - Non-bleeding internal hemorrhoids. - No specimens collected. Recommendation: - Patient has a contact number available for emergencies. The signs and symptoms of potential delayed complications were discussed with the patient. Return to normal activities tomorrow. Written discharge instructions were provided to the patient. - Await pathology results. - Repeat colonoscopy in 5-10 years for screening purposes. - Return to my office PRN. Procedure Code(s): --- Professional --- G0105, Colorectal cancer screening; colonoscopy on individual at high risk Diagnosis Code(s): --- Professional --- Z86.010, Personal history of colonic polyps K64.0, First degree hemorrhoids CPT copyright 2019 [employer]. All rights reserved. The codes documented in this report are preliminary and upon pull out operator review may be revised to meet current compliance requirements. Spencer Conklin DO 12/12/2020 10:41:33 AM Electronically signed by Spencer Conklin DO Number of Addenda: 0 Note Initiated On: 12/12/2020 10:23 AM Estimated Blood Loss: Estimated blood loss: none.
[2020-12-12 11:00] VITALS: BP 136/96
== END 2020-12-12 11:07 | disposition home or self-care (01) ==
LOC: M OPP 08:47
PROVIDERS: ATTEND Surgery
DX: K64.0 First degree hemorrhoids (principal); K62.89 Other specified diseases of anus and rectum; Z86.010 Personal history of colon polyps; Z09 Encounter for follow-up examination after completed treatment for conditions other than malignant neoplasm; Z79.899 Other long term (current) drug therapy; Z80.1 Family history of malignant neoplasm of trachea, bronchus and lung; Z87.891 Personal history of nicotine dependence

== ENCOUNTER → 2021-10-16 | Outpatient (REF) | payer MEDICARE, OTHER ==
[~2021-10-16] MED LIST changes: +ALBU2.5V10 INH; -ALBU83IN INH; -NS 1,000 ML IV ONE
[2021-10-16 13:43] LABS: BASO # 0.1 10^3/uL (0.0-0.2); BASO % 0.9 % (0.0-1.0); EOS # 0.2 10^3/uL (0.0-0.5); EOS % 2.6 % (0.0-3.0); HEMATOCRIT 46.7 % (42.0-52.0); HEMOGLOBIN 15.2 g/dl (13.5-17.5); LYMPH # 2.8 10^3/uL (1.5-5.0); LYMPH % 31.5 % (24.0-44.0); MEAN CORPUSCULAR HEMOGLOBIN 29.6 pg (27.0-33.0); MEAN CORPUSCULAR HGB CONC 32.5 g/dl (32.0-36.5); MONO # 0.9 10^3/uL (0.0-0.8); MONO % 10.1 % (2.0-8.0); NEUTROPHILS # 4.8 10^3/uL (1.5-8.5); NEUTROPHILS % 54.2 % (36.0-66.0); PLATELET COUNT, AUTOMATED 259 10^3/uL (150-450); RED BLOOD COUNT 5.13 10^6/uL (4.30-6.10); WHITE BLOOD COUNT 8.9 10^3/uL (4.0-10.0)
[2021-10-16 14:24] LABS: ALT/SGPT 41 U/L (12-78); BILIRUBIN,TOTAL 0.6 MG/DL (0.2-1.0); BLOOD UREA NITROGEN 11 MG/DL (7-18); CALCIUM LEVEL 9.5 MG/DL (8.8-10.2); CARBON DIOXIDE LEVEL 24 MEQ/L (21-32); CHLORIDE LEVEL 108 MEQ/L (98-107); CHOLESTEROL LEVEL 145 MG/DL (<200); CREATININE FOR GFR 1.01 MG/DL (0.70-1.30); GLOMERULAR FILTRATION RATE > 60.0 (>49); GLUCOSE, FASTING 106 MG/DL (70-100); HDL CHOLESTEROL 40 MG/DL (>40); POTASSIUM SERUM 4.5 MEQ/L (3.5-5.1); SODIUM LEVEL 141 MEQ/L (136-145); TRIGLYCERIDES LEVEL 214 MG/DL (<150)
[2021-10-16 14:25] LABS: ALBUMIN 3.8 GM/DL (3.2-5.2); CHOLESTEROL RISK RATIO 3.625 (<5); LDL CHOLESTEROL 62 MG/DL (<100); NON-HDL-C 105 MG/DL; TOTAL PROTEIN 7.1 GM/DL (6.4-8.2)
== END ==
LOC: M SFHCADAM 08:40
PROVIDERS: ATTEND Family Medicine
DX: Z00.00 Encounter for general adult medical examination without abnormal findings (principal); E78.2 Mixed hyperlipidemia

== ENCOUNTER → 2022-06-04 | Outpatient (REF) | payer MEDICARE, OTHER ==
[~2022-06-04] MED LIST changes: +ALBU6.7H6 INH; -PROV108A INH
[2022-06-04 13:30] LABS: BLOOD UREA NITROGEN 16 MG/DL (9-23); CALCIUM LEVEL 8.9 MG/DL (8.3-10.6); CARBON DIOXIDE LEVEL 26 MMOL/L (20-31); CHLORIDE LEVEL 108 MMOL/L (98-107); CREATININE FOR GFR 0.91 MG/DL (0.70-1.30); GLOMERULAR FILTRATION RATE > 60.0 (>49); GLUCOSE, FASTING 96 MG/DL (74-106); POTASSIUM SERUM 4.6 MMOL/L (3.5-5.1); SODIUM LEVEL 139 MMOL/L (136-145)
== END ==
LOC: M SFHCADAM 09:09
PROVIDERS: ATTEND Family Medicine
DX: I10 Essential (primary) hypertension (principal)

== ENCOUNTER → 2022-10-17 | Outpatient (REF) | payer MEDICARE, OTHER ==
[2022-10-17 13:30] LABS: BASO # 0.1 10^3/uL (0.0-0.2); BASO % 0.7 % (0.0-1.0); EOS # 0.2 10^3/uL (0.0-0.5); HEMATOCRIT 45.6 % (42.0-52.0); LYMPH # 3.1 10^3/uL (1.5-5.0); LYMPH % 27.6 % (24.0-44.0); MEAN CORPUSCULAR HEMOGLOBIN 30.7 pg (27.0-33.0); MEAN CORPUSCULAR HGB CONC 32.9 g/dl (32.0-36.5); MEAN CORPUSCULAR VOLUME 93.3 fl (80.0-96.0); MONO # 1.1 10^3/uL (0.0-0.8); MONO % 9.4 % (2.0-8.0); NEUTROPHILS # 6.8 10^3/uL (1.5-8.5); NEUTROPHILS % 59.9 % (36.0-66.0); PLATELET COUNT, AUTOMATED 249 10^3/uL (150-450); RED BLOOD COUNT 4.89 10^6/uL (4.30-6.10); WHITE BLOOD COUNT 11.4 10^3/uL (4.0-10.0)
[2022-10-17 13:45] LABS: ALBUMIN 3.9 G/DL (3.2-5.2); ALKALINE PHOSPHATASE 113 U/L (46-116); ALT/SGPT 27 U/L (7.0-40); AST/SGOT 22 U/L (<34); BILIRUBIN,TOTAL 0.8 MG/DL (0.3-1.2); BLOOD UREA NITROGEN 13 MG/DL (9-23); CALCIUM LEVEL 8.8 MG/DL (8.3-10.6); CARBON DIOXIDE LEVEL 26 MMOL/L (20-31); CHLORIDE LEVEL 105 MMOL/L (98-107); CHOLESTEROL LEVEL 128 MG/DL (<200); CHOLESTEROL RISK RATIO 3.52 (<5); CREATININE FOR GFR 0.88 MG/DL (0.70-1.30); GLOMERULAR FILTRATION RATE > 60.0 (>49); GLUCOSE, FASTING 93 MG/DL (74-106); HDL CHOLESTEROL 36.3 MG/DL (>40); LDL CHOLESTEROL 41.1 MG/DL (<100); NON-HDL-C 91.7 MG/DL; POTASSIUM SERUM 4.6 MMOL/L (3.5-5.1); SODIUM LEVEL 140 MMOL/L (136-145); THYROID STIMULATING HORMONE 2.369 uIU/ML (0.55-4.78); TRIGLYCERIDES LEVEL 253 MG/DL (<150)
== END ==
LOC: M LABDRWAD 12:30
PROVIDERS: ATTEND Family Medicine
DX: Z00.00 Encounter for general adult medical examination without abnormal findings (principal); Z79.899 Other long term (current) drug therapy

== ENCOUNTER → 2023-06-24 | Outpatient (REF) | payer MEDICARE, OTHER | LOC: M SFHCDERM 15:55 | PROVIDERS: ATTEND Nurse Practitioner Family | DX: C44.41 Basal cell carcinoma of skin of scalp and neck (principal); L57.0 Actinic keratosis ==

== ENCOUNTER → 2023-11-10 | Outpatient (REF) | payer MEDICARE, OTHER ==
[2023-11-10 15:15] LABS: BASO # 0.1 10^3/uL (0.0-0.2); BASO % 0.8 % (0.0-1.0); EOS # 0.3 10^3/uL (0.0-0.5); EOS % 3.1 % (0.0-3.0); HEMATOCRIT 47.4 % (42.0-52.0); HEMOGLOBIN 14.9 g/dl (13.5-17.5); LYMPH # 3.4 10^3/uL (1.5-5.0); LYMPH % 34.4 % (24.0-44.0); MEAN CORPUSCULAR HGB CONC 31.4 g/dl (32.0-36.5); MEAN CORPUSCULAR VOLUME 95.4 fl (80.0-96.0); MONO # 0.9 10^3/uL (0.0-0.8); MONO % 9.3 % (2.0-8.0); NEUTROPHILS # 5.1 10^3/uL (1.5-8.5); NEUTROPHILS % 51.8 % (36.0-66.0); PLATELET COUNT, AUTOMATED 238 10^3/uL (150-450); RED BLOOD COUNT 4.97 10^6/uL (4.30-6.10); WHITE BLOOD COUNT 9.9 10^3/uL (4.0-10.0)
[2023-11-10 15:22] LABS: THYROID STIMULATING HORMONE 2.969 uIU/ML (0.55-4.78)
[2023-11-10 15:23] LABS: ALBUMIN 3.9 G/DL (3.2-5.2); ALKALINE PHOSPHATASE 109 U/L (46-116); ALT/SGPT 18 U/L (7.0-40); AST/SGOT 15 U/L (<34); BILIRUBIN,TOTAL 0.6 MG/DL (0.3-1.2); BLOOD UREA NITROGEN 12 MG/DL (9-23); CALCIUM LEVEL 9.3 MG/DL (8.3-10.6); CARBON DIOXIDE LEVEL 24 MMOL/L (20-31); CHLORIDE LEVEL 108 MMOL/L (98-107); CHOLESTEROL LEVEL 155 MG/DL (<200); CHOLESTEROL RISK RATIO 4.14 (<5); CREATININE FOR GFR 0.86 MG/DL (0.70-1.30); GLOMERULAR FILTRATION RATE > 60.0 (>42); GLUCOSE, FASTING 103 MG/DL (74-106); HDL CHOLESTEROL 37.4 MG/DL (>40); LDL CHOLESTEROL 56.6 MG/DL (<100); NON-HDL-C 117.6 MG/DL; POTASSIUM SERUM 4.5 MMOL/L (3.5-5.1); SODIUM LEVEL 141 MMOL/L (136-145); TOTAL PROTEIN 6.9 G/DL (5.7-8.2); TRIGLYCERIDES LEVEL 305 MG/DL (<150)
== END ==
LOC: M SFHCADAM 07:09
PROVIDERS: ATTEND Family Medicine
DX: Z00.00 Encounter for general adult medical examination without abnormal findings (principal); E78.00 Pure hypercholesterolemia, unspecified

== ENCOUNTER → 2024-01-12 | Outpatient (REF) | payer MEDICARE, OTHER | LOC: M SFHCDERM 13:46 | PROVIDERS: ATTEND Nurse Practitioner Family | DX: D04.39 Carcinoma in situ of skin of other parts of face (principal) ==

== ENCOUNTER → 2024-02-11 | Outpatient (REF) | payer MEDICARE, OTHER | LOC: M SFHCDERM 13:05 | PROVIDERS: ATTEND Nurse Practitioner Family | DX: D04.4 Carcinoma in situ of skin of scalp and neck (principal) ==

== ENCOUNTER → 2024-05-19 | Outpatient (CLI) | payer MEDICARE, OTHER | LOC: M ONCR 09:35 | PROVIDERS: ATTEND General Practice | DX: C44.42 Squamous cell carcinoma of skin of scalp and neck (principal); F17.210 Nicotine dependence, cigarettes, uncomplicated; Z79.899 Other long term (current) drug therapy ==

== ENCOUNTER 2024-06-23 09:12 | Outpatient (RCR) | payer MEDICARE, OTHER | END 2024-06-24 | LOC: M ONCR 09:12 | PROVIDERS: ATTEND General Practice | DX: Z51.0 Encounter for antineoplastic radiation therapy (principal); C44.42 Squamous cell carcinoma of skin of scalp and neck ==

== ENCOUNTER 2024-07-12 09:09 | Outpatient (RCR) | payer MEDICARE, OTHER | END 2024-07-25 | LOC: M ONCR 09:09 | PROVIDERS: ATTEND General Practice | DX: Z51.0 Encounter for antineoplastic radiation therapy (principal); C44.42 Squamous cell carcinoma of skin of scalp and neck ==

== ENCOUNTER → 2024-08-12 | Outpatient (CLI) | payer MEDICARE, OTHER | LOC: M ONCR 09:09 | PROVIDERS: ATTEND General Practice | DX: C44.42 Squamous cell carcinoma of skin of scalp and neck (principal); Z92.3 Personal history of irradiation; F17.210 Nicotine dependence, cigarettes, uncomplicated; Z79.899 Other long term (current) drug therapy ==

== ENCOUNTER → 2024-11-17 | Outpatient (REF) | payer MEDICARE, OTHER ==
[2024-11-17 13:50] LABS: BASO # 0.1 10^3/uL (0.0-0.2); BASO % 1.0 % (0.0-1.0); EOS # 0.3 10^3/uL (0.0-0.5); EOS % 3.5 % (0.0-3.0); LYMPH # 3.5 10^3/uL (1.5-5.0); LYMPH % 36.0 % (24.0-44.0); MONO # 0.9 10^3/uL (0.0-0.8); MONO % 9.7 % (2.0-8.0); NEUTROPHILS # 4.8 10^3/uL (1.5-8.5); NEUTROPHILS % 49.4 % (36.0-66.0); PLATELET COUNT, AUTOMATED 247 10^3/uL (150-450)
[2024-11-17 13:57] LABS: ALT/SGPT 25.0 U/L (7.0-40); AST/SGOT 27.0 U/L (<34); CALCIUM LEVEL 8.8 MG/DL (8.3-10.6); CARBON DIOXIDE LEVEL 26.0 MMOL/L (20-31); CHLORIDE LEVEL 104.0 MMOL/L (98-107); CHOLESTEROL LEVEL 139.0 MG/DL (<200); CHOLESTEROL RISK RATIO 3.66 (<5); CREATININE FOR GFR 0.97 MG/DL (0.70-1.30); GLOMERULAR FILTRATION RATE 83.5 (>42); LDL CHOLESTEROL 50.5 MG/DL (<100); NON-HDL-C 101.1 MG/DL; POTASSIUM SERUM 4.4 MMOL/L (3.5-5.1); SODIUM LEVEL 142.0 MMOL/L (136-145); TRIGLYCERIDES LEVEL 253.0 MG/DL (<150)
== END ==
LOC: M SFHCADAM 07:09
PROVIDERS: ATTEND Family Medicine
DX: Z00.00 Encounter for general adult medical examination without abnormal findings (principal); I10 Essential (primary) hypertension

== ENCOUNTER → 2025-01-12 | Outpatient (CLI) | payer MEDICARE, OTHER | LOC: M ONCR 08:49 | PROVIDERS: ATTEND General Practice | DX: Z08 Encounter for follow-up examination after completed treatment for malignant neoplasm (principal); Z85.828 Personal history of other malignant neoplasm of skin; Z92.3 Personal history of irradiation; F17.210 Nicotine dependence, cigarettes, uncomplicated; Z79.899 Other long term (current) drug therapy ==

== ENCOUNTER → 2025-02-01 | Outpatient (CLI) | payer MEDICARE, OTHER | LOC: M RAD 07:28 | PROVIDERS: ATTEND Family Medicine | DX: J43.9 Emphysema, unspecified (principal); J98.11 Atelectasis; F17.211 Nicotine dependence, cigarettes, in remission ==